=== PATIENT | male | born 1940 | race Two or more races ===

== ENCOUNTER 2022-01-10 22:04 | Inpatient (IN) | payer MEDICARE, OTHER ==
[~2022-01-10] VITALS: Ht 170.2 cm; Wt 63.5 kg
--- NOTE | 2022-01-10 22:15 | NUR ---
TO ER BED 3. BIBRA39 FOR CHRONIC BACK PAIN [id number]. 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 PAIN 9/10 ON P/S. CONNECTED TO MONITOR. VSS. AWAITING MD SANTAMARIA
[2022-01-10] MEDS ORDERED: KETOROLAC TROMETHAMINE INJ 30 MG/ML VIAL ONE (22:41)
[2022-01-10] MEDS ORDERED: CYCLOBENZAPRINE 10 MG TABLET ONE (22:41)
[2022-01-10] MEDS ORDERED: CYCLOBENZAPRINE 10 MG TABLET PO ONE (23:00)
[2022-01-10] MEDS ORDERED: KETOROLAC TROMETHAMINE INJ 60 MG/2 ML VIAL IM ONE (23:00)
[2022-01-11] MEDS ORDERED: MORPHINE SULFATE INJ 2 MG/ML DISP.SYRIN IV ONE (01:00)
[2022-01-11] MEDS ORDERED: MORPHINE SULFATE INJ 4 MG/ML DISP.SYRIN ONE (01:03)
--- NOTE | 2022-01-11 01:08 | NUR ---
COVID ANTIGEN SWAB COLLECTED AND SENT TO LAB
--- NOTE | 2022-01-11 01:26 | NUR ---
MRSA COLLECTED, SENT TO LAB
--- NOTE | 2022-01-11 02:04 | NUR ---
DR. BEE TALKING TO DR. PADILLA FOR ADMISSION.
[2022-01-11] MEDS ORDERED: CYCLOBENZAPRINE 10 MG TABLET PO PRN (02:30)
[2022-01-11] MEDS ORDERED: MAG HYDROX/AL HYDROX/SIMETH 30 ML UDC PO PRN (02:30)
[2022-01-11] MEDS ORDERED: ACETAMINOPHEN 325 MG TABLET PO PRN (02:30)
[2022-01-11] MEDS ORDERED: Z GUARD REMEDY 4 OZ OINT TP PRN (02:30)
[2022-01-11] MEDS ORDERED: MAGNESIUM HYDROXIDE 30 ML UDC PO PRN (02:30)
[2022-01-11] MEDS ORDERED: ZOLPIDEM TARTRATE 5 MG TABLET PO PRN (02:30)
[2022-01-11] MEDS ORDERED: ONDANSETRON HCL/PF 4 MG/2 ML VIAL IVP PRN (02:30)
[2022-01-11 03:05] LABS: BASOPHILS % (AUTO) 0.5 % (0.0-2.0); EOSINOPHILS % (AUTO) 3.2 % (0.0-6.0); HEMATOCRIT 38 % (39-51); HEMOGLOBIN 13.3 g/dL (13.5-17.5); LYMPHOCYTES # (AUTO) 1.4 K/uL (0.8-4.8); LYMPHOCYTES % (AUTO) 20.8 % (20.0-44.0); MEAN CORPUSCULAR HGB CONC 35 g/dl (31.0-36.0); MEAN CORPUSCULAR VOLUME 85 fL (80-96); MONOCYTES # (AUTO) 0.6 K/uL (0.1-1.30); MONOCYTES % (AUTO) 8.1 % (2.0-12.0); NEUTROPHILS # (AUTO) 4.6 K/uL (1.8-8.9); NEUTROPHILS % (AUTO) 67.4 % (43.0-81.0); PLATELET COUNT (AUTO) 208 K/uL (150-450); RED BLOOD CELL COUNT(AUTO) 4.48 MIL/uL (4.5-6.0); WHITE BLOOD COUNT (AUTO) 6.8 K/uL (4.3-11.0)
[2022-01-11 03:13] LABS: CALCIUM, SERUM 8.4 mg/dL (8.5-10.1); CARBON DIOXIDE 29 mmol/L (21-32); CHLORIDE 104 mmol/L (98-107); CREATININE 1.4 mg/dL (0.6-1.3); GLUCOSE 184 mg/dL (74-106); POTASSIUM 4.3 mmol/L (3.5-5.1); SODIUM SERUM 139 mmol/L (136-145); UREA NITROGEN, BLOOD 24 mg/dL (7-18)
--- NOTE | 2022-01-11 07:00 | NUR ---
RECEIVED PT FROM MARIA ISABEL CUEVAS C/O ABDOMINAL PAIN 03/19 AND ROBERTA FOR MEDICALE FLOOR BED ASKING STRONG PAIN MEDICTION PLAN
--- NOTE | 2022-01-11 07:15 | NUR ---
RECEVED PT FROM JUILE ASLEEY RESPIRATION SPONT AND EASY NO DISTRESS WATING FOR BED NO PAIN
--- NOTE | 2022-01-11 07:39 | NUR ---
PT REFUSED TO CONTENUE TERETMET AND REQUSTED TO SIGN AMDanish BASS NOTEFY PT SIDE I RECEVED TX AND I WANT TO GO HOE MEDITION FOR PAIN NOT HELP ME REQUSTED TO SIGN AANAPOLEON
--- NOTE | 2022-01-11 07:51 | NUR ---
REPORT GIVEN TO MASON SCHULTE FOR AYLA.
[2022-01-11] MEDS ORDERED: PANTOPRAZOLE 40 MG TABLET.DR PO ONE (07:55)
[2022-01-11] MEDS: PANTOPRAZOLE 40 MG TABLET.DR PO SCH (07:56)
--- NOTE | 2022-01-11 08:45 | NUR ---
TRANSFERRED TO 327 IN STABLE CONDITION
[2022-01-11] MEDS ORDERED: NEO/3.5O15 RIGHTEYE (09:33)
[2022-01-11] MEDS ORDERED: ATOR40TA PO (09:33)
[2022-01-11] MEDS ORDERED: INSU100V7 SQ (09:33)
[2022-01-11] MEDS ORDERED: METF-441 PO (09:33)
[2022-01-11] MEDS ORDERED: MULT-1168 PO (09:33)
[2022-01-11] MEDS ORDERED: ASPI-1420 PO (09:33)
[2022-01-11] MEDS ORDERED: GLIM2TAB31 PO (09:33)
[2022-01-11] MEDS ORDERED: OLME40TA18 PO (09:33)
[2022-01-11] MEDS ORDERED: ERGO500093 PO (09:33)
[2022-01-11] MEDS ORDERED: AMLO-212 PO (09:33)
[2022-01-11 11:14] VITALS: BP 148/68
[2022-01-11] MEDS ORDERED: IV NS 0.9% 1,000 ML IV ONE (11:30)
--- NOTE | 2022-01-11 19:37 | NUR ---
MS RN OPENING NOTES PATIENT CAME FROM ER, AND REPORT RECEIVED FROM MASON CRISSOTOMO. PATIENT IS AWAKE IN HIS BED COMFORTABLY; A/O X 4 AND ABLE TO COMMUNICATE HIS NEEDS. NO SIGNS OF DISTRESS, SOB AND DISCOMFORTED NOTED. R AC #18G, PATENT & INTACT. SAFETY MEASURES INITIATED: CALL LIGHT IN REACH, BED ON LOWER POSITION. ALL NEEDS ATTENDED AT THIS TIME. WILL CONTINUE TO MONITOR FOR AYLA.
--- NOTE | 2022-01-11 19:39 | NUR ---
MS RN CLOSING NOTES PATIENT IS AWAKE IN HIS BED COMFORTABLY; A/O X 4 AND ABLE TO COMMUNICATE HIS NEEDS. NO SIGNS OF DISTRESS, SOB AND DISCOMFORTED NOTED. R AC #18G, PATENT & INTACT. SAFETY MEASURES INITIATED: CALL LIGHT IN REACH, BED ON LOWER POSITION. ALL NEEDS ATTENDED AT THIS TIME. WILL ENDORSE TO INCOMING SHIFT FOR AYLA.
[2022-01-11 20:00] VITALS: BP 121/59
[2022-01-11] MEDS ORDERED: DEXTROSE 50%-WATER 50 ML DISP.SYRIN IV PRN (20:00)
[2022-01-11] MEDS ORDERED: *INSULIN REGULAR(HUMULIN R)HUM 100 UNIT/ML VIAL SQ PRN (20:00)
[2022-01-11] MEDS: MORPHINE SULFATE INJ 4 MG/ML DISP.SYRIN IV PRN (20:15)
[2022-01-11] MEDS ORDERED: INSULIN REGULAR, HUMAN 100 UNIT/ML 3 ML VIAL ONE (20:49)
[2022-01-11] MEDS: BLOOD SUGAR DIAGNOSTIC 1 EACH STRIP VI SCH (21:55)
[2022-01-11] MEDS ORDERED: ATORVASTATIN 40 MG TABLET PO SCH (22:00)
[2022-01-11 22:48] LABS: BILIRUBIN,URINE NEGATIVE (NEGATIVE); COLOR,URINE YELLOW (YELLOW); LEUKOCYTE ESTERASE ,URINE NEGATIVE (NEGATIVE); NITRITE, URINE NEGATIVE (NEGATIVE); PROTEIN,URINE NEGATIVE (NEGATIVE); UGLUCOSE NEGATIVE (NEGATIVE); UROBILINOGEN,URINE 0.2 EU/dL (0.2)
--- NOTE | 2022-01-12 05:53 | NUR ---
ADMITTED FOR INTRACTABLE BACK PAIN, ALERT/ORIENTED X4, ROOM AIR, BACK PAIN, MORPHINE 4 MG IV GIVEN WITH ADEQUATE RELIEF. GENERALIZED WEAKNESS, ABLE TO GET OUT OF BED AND STAND, WILL REQUIRE FWW TO AMBULATE. CONTINENT OF BOWEL AND BLADDER. PER CT LUMBAR, POSTERIOR DISC BULGES, SPINAL CANAL NARROWING. US RENAL SHOWS BILATERAL RENAL CYSTS. BUN/CREATININE ELEVATED, PER WREATH AND GARLAND MAKER HAND, JOSH RULE OUT ATN, LIKELY HYPOPERFUSION. PT EVAL AND TREATMENT, PAIN CONTROL, NS AT 50 ML/HR
[2022-01-12] MEDS: INSULIN REGULAR, HUMAN 100 UNIT/ML 3 ML VIAL SQ PRN ×2 (06:45→12:03)
[2022-01-12 06:50] LABS: BASOPHILS % (AUTO) 0.6 % (0.0-2.0); EOSINOPHILS % (AUTO) 3.9 % (0.0-6.0); HEMATOCRIT 39 % (39-51); HEMOGLOBIN 13.7 g/dL (13.5-17.5); LYMPHOCYTES # (AUTO) 1.2 K/uL (0.8-4.8); LYMPHOCYTES % (AUTO) 20.5 % (20.0-44.0); MEAN CORPUSCULAR HGB CONC 35 g/dl (31.0-36.0); MEAN CORPUSCULAR VOLUME 85 fL (80-96); MONOCYTES # (AUTO) 0.5 K/uL (0.1-1.30); MONOCYTES % (AUTO) 9.8 % (2.0-12.0); NEUTROPHILS # (AUTO) 3.7 K/uL (1.8-8.9); NEUTROPHILS % (AUTO) 65.2 % (43.0-81.0); PLATELET COUNT (AUTO) 204 K/uL (150-450); WHITE BLOOD COUNT (AUTO) 5.6 K/uL (4.3-11.0)
[2022-01-12] MEDS: BLOOD SUGAR DIAGNOSTIC 1 EACH STRIP VI SCH ×2 (06:56→11:48)
[2022-01-12 07:14] LABS: CALCIUM, SERUM 8.5 mg/dL (8.5-10.1); CREATININE 1.1 mg/dL (0.6-1.3); PHOSPHORUS 3.8 mg/dL (2.5-4.9)
--- NOTE | 2022-01-12 07:30 | NUR ---
MS RN OPENING NOTES RECEIVED PATIENT AWAKE IN HIS BED COMFORTABLY; A/O X 4 AND EASILY AROUSABLE. ABLE TO COMMUNICATE HIS NEEDS. NO SIGNS OF DISTRESS, SOB AND DISCOMFORTED NOTED. R AC #20G WITH NS @ 50 ML/HR; PATENT & INTACT. SAFETY MEASURES INITIATED: CALL LIGHT IN REACH, BED ON LOWER POSITION. ALL NEEDS ATTENDED AT THIS TIME. WILL CONTINUE TO MONITOR FOR AYLA.
[2022-01-12 08:21] VITALS: BP 128/85
[2022-01-12] MEDS: PANTOPRAZOLE 40 MG TABLET.DR PO SCH (08:21)
[2022-01-12] MEDS ORDERED: AMLODIPINE BESYLATE 5 MG TABLET PO SCH (09:00)
[2022-01-12] MEDS: MORPHINE SULFATE INJ 4 MG/ML DISP.SYRIN IV PRN (10:30)
[2022-01-12] MEDS ORDERED: METH-647 PO (11:09)
--- NOTE | 2022-01-12 16:00 | NUR ---
MS DIRECTOR MEDIA NOTES PATIENT IS AWAKE. ALERT, & ORIENTED X 4. ALL HIS NEEDS WERE MET, AND ABLE TO COMMUNICATE IT. IV IN R FA #20G IS DISCONNECTED; NO SIGNS OF SWELLING, BLEEDING AND INFILTRATION. V/S IS WITHIN NORMAL LIMITS. ROOM AIR, NO SIGNS OF SOB AND DISTRESS. ALL DISCHARGED INSTRUCTION GIVEN TO PATIENT, AND HE VERBALIZED UNDERSTANDING. BELONGING CHECKLIST SIGNED AND PATIENT VERIFIED THAT ALL HIS VALUABLES ARE COMPLETE. PATIENT IS STABLE AND DISCHARGED @1600. BEFORE LEAVING, PATIENT REQUESTED 650 MG OF TYLENOL FOR BACK PAIN. REPORT IS GIVEN TO SINA BEVERLY. PATIENT IS STABLE AND ACCOMPANIED BY 2 EMT'S IN [facility] FOR DISCHARGE TRANSPORTATION.
== END 2022-01-12 18:02 | disposition home health service (06) | DRG 551 ==
LOC: ER 22:06 → TRANSITION 01-11 05:20 → MED 01-11 07:44
PROVIDERS: ADMIT Nurse Practitioner Acute Care; ATTEND Nurse Practitioner Acute Care
DX: M48.061 Spinal stenosis, lumbar region without neurogenic claudication (principal); N17.0 Acute kidney failure with tubular necrosis; E11.65 Type 2 diabetes mellitus with hyperglycemia; I10 Essential (primary) hypertension; Z79.4 Long term (current) use of insulin; Z79.84 Long term (current) use of oral hypoglycemic drugs; Z20.822 Contact with and (suspected) exposure to COVID-19; Z79.82 Long term (current) use of aspirin; G89.29 Other chronic pain; N40.0 Benign prostatic hyperplasia without lower urinary tract symptoms; N28.1 Cyst of kidney, acquired
CPT/HCPCS: 36415; 72131-TC; 76770-TC; 76870-TC; 80048-TC; 82962-TC; 83735-TC; 84100-TC; 85025-TC; 87081-TC; 87086-TC; 97116-TC; 97530-TC; C9803; G0378; J1815; J1885; J2270; J7030

== ENCOUNTER 2022-01-16 22:14 | Emergency (ER) | payer MEDICARE, OTHER ==
[~2022-01-16] VITALS: Ht 175.3 cm; Wt 83.9 kg
[~2022-01-16 22:14] MED LIST: AMLO-212 PO; ASPI-1420 PO; ATOR40TA PO; ERGO500093 PO; GLIM2TAB31 PO; INSU100V7 SQ; METF-441 PO; METH-647 PO; MULT-1168 PO; NEO/3.5O15 RIGHTEYE; OLME40TA18 PO
--- NOTE | 2022-01-16 22:35 | NUR ---
TO ER BED 4. BIBSELF C/O LOW BS AT HOME . ACCUCHECK NOTED AT 99 DURING TRIAGE. AAOX4. AMBULAYORY. CONNECTED TO MONITOR. VSS. NOT IN RESPIRATORY DISTRESS. AWAITING MD SANTAMARIA
--- NOTE | 2022-01-16 22:58 | NUR ---
PT TAKEN FOR CT SCAN
--- NOTE | 2022-01-16 23:09 | NUR ---
[facility]
[2022-01-16 23:15] LABS: BASOPHILS % (AUTO) 0.6 % (0.0-2.0); EOSINOPHILS % (AUTO) 4.3 % (0.0-6.0); HEMATOCRIT 40 % (39-51); HEMOGLOBIN 13.9 g/dL (13.5-17.5); LYMPHOCYTES # (AUTO) 1.4 K/uL (0.8-4.8); LYMPHOCYTES % (AUTO) 22.9 % (20.0-44.0); MEAN CORPUSCULAR HGB CONC 35 g/dl (31.0-36.0); MEAN CORPUSCULAR VOLUME 85 fL (80-96); MONOCYTES # (AUTO) 0.7 K/uL (0.1-1.30); MONOCYTES % (AUTO) 11.7 % (2.0-12.0); NEUTROPHILS # (AUTO) 3.8 K/uL (1.8-8.9); NEUTROPHILS % (AUTO) 60.5 % (43.0-81.0); PLATELET COUNT (AUTO) 212 K/uL (150-450); WHITE BLOOD COUNT (AUTO) 6.2 K/uL (4.3-11.0)
[2022-01-16 23:26] LABS: CALCIUM, SERUM 8.9 mg/dL (8.5-10.1); CARBON DIOXIDE 32 mmol/L (21-32); CHLORIDE 102 mmol/L (98-107); CREATININE 1.1 mg/dL (0.6-1.3); GLUCOSE 116 mg/dL (74-106); POTASSIUM 4.2 mmol/L (3.5-5.1); SODIUM SERUM 140 mmol/L (136-145); UREA NITROGEN, BLOOD 19 mg/dL (7-18)
[2022-01-16 23:32] LABS: ALANINE AMINOTRANSFERASE 35 U/L (12-78); ALBUMIN 3.9 g/dL (3.4-5.0); ALKALINE PHOSPHATASE 57 U/L (46-116); ASPARTATE AMINOTRANSFERASE 18 U/L (15-37); BILIRUBIN,DIRECT 0.1 mg/dL (0.0-0.2); BILIRUBIN,TOTAL 0.4 mg/dL (0.2-1.0); TOTAL PROTEIN, SERUM 7.1 g/dL (6.4-8.2)
--- NOTE | 2022-01-17 00:56 | NUR ---
LAB AT BEDSIDE FOR REPEAT TROP
--- NOTE | 2022-01-17 01:39 | NUR ---
Patient discharged to home in stable condition. Written and verbal after care instructions given. Patient verbalizes understanding of instruction.
[2022-01-17 01:41] VITALS: BP 145/81
== END 2022-01-17 01:45 | disposition home or self-care (01) ==
LOC: ER 22:19
DX: Z71.1 Person with feared health complaint in whom no diagnosis is made (principal); R51.9 Headache, unspecified; R42 Dizziness and giddiness; I10 Essential (primary) hypertension; E11.9 Type 2 diabetes mellitus without complications; Z79.899 Other long term (current) drug therapy
CPT/HCPCS: 36415; 70450-TC; 71045-TC; 80048-TC; 80076-TC; 82962-TC; 84484-TC; 85025-TC; 85730-TC

== ENCOUNTER 2022-02-06 09:32 | Emergency (ER) | payer MEDICARE, OTHER ==
[~2022-02-06] VITALS: Ht 175.3 cm; Wt 88.5 kg
--- NOTE | 2022-02-06 09:44 | NUR ---
To ER bed 11, from home, "Slip/Fall in BR Left side hit wall. Pain more left shoulder", patient said he fell yesterday and could not move his shoulder, denies LOC, aaox3, breathing even and non labored, awaiting md banda
--- NOTE | 2022-02-06 09:50 | NUR ---
DR WEATHERS AT BEDSIDE FOR EVAL
--- NOTE | 2022-02-06 10:11 | NUR ---
TAKEN TO CT VIA JUSTIN
[2022-02-06] MEDS ORDERED: NAPR-1009 PO (11:29)
--- NOTE | 2022-02-06 11:41 | NUR ---
Patient discharged to home in stable condition. Written and verbal after care instructions given. Patient verbalizes understanding of instruction.
[2022-02-06 11:47] VITALS: BP 135/77
== END 2022-02-06 11:47 | disposition home or self-care (01) ==
LOC: ER 09:42
DX: S43.492A Other sprain of left shoulder joint, initial encounter (principal); S50.312A Abrasion of left elbow, initial encounter; S09.90XA Unspecified injury of head, initial encounter; I10 Essential (primary) hypertension; E11.9 Type 2 diabetes mellitus without complications; Z79.899 Other long term (current) drug therapy; W18.30XA Fall on same level, unspecified, initial encounter; Y93.89 Activity, other specified; Y92.89 Other specified places as the place of occurrence of the external cause; Y99.8 Other external cause status
CPT/HCPCS: 70450-TC; 73030-TC; 73060-TC

== ENCOUNTER 2022-04-14 09:55 | Emergency (ER) | payer MEDICARE, OTHER ==
[~2022-04-14] VITALS: Ht 175.3 cm; Wt 83.0 kg
[~2022-04-14 09:55] MED LIST changes: +NAPR-1009 PO
--- NOTE | 2022-04-14 10:21 | NUR ---
BIB SELF C/O PAIN BI- LATERAL LE
[2022-04-14] MEDS ORDERED: KETOROLAC TROMETHAMINE 15 MG/ML VIAL ONE (10:51)
[2022-04-14] MEDS ORDERED: GABAPENTIN 100 MG CAPSULE ONE (10:51)
[2022-04-14] MEDS ORDERED: GABAPENTIN 100 MG CAPSULE PO ONE (11:00)
[2022-04-14] MEDS ORDERED: KETOROLAC TROMETHAMINE INJ 60 MG/2 ML VIAL IM ONE (11:00)
--- NOTE | 2022-04-14 11:16 | NUR ---
BS = 236
--- NOTE | 2022-04-14 13:05 | NUR ---
TYPE 2 DM, HAS A SOURCE FOR BLOOD TEST ON LEFT UPPER ARM TO HELP AVOID THE POKE/STICKS
[2022-04-14] MEDS ORDERED: HYDR-4303 PO (13:12)
--- NOTE | 2022-04-14 13:23 | NUR ---
PT CLEARED FOR D/C BY DR WORTHINGTON, LEFT WITHOUT ACI.
[2022-04-14 13:24] VITALS: BP 122/70
== END 2022-04-14 13:25 | disposition home or self-care (01) ==
LOC: ER 10:04
DX: M79.672 Pain in left foot (principal); E11.65 Type 2 diabetes mellitus with hyperglycemia; I10 Essential (primary) hypertension; Z98.890 Other specified postprocedural states; Z79.899 Other long term (current) drug therapy; Z79.84 Long term (current) use of oral hypoglycemic drugs; Z79.4 Long term (current) use of insulin
CPT/HCPCS: 99283; 96372; 73620; 82962; J1885

== ENCOUNTER 2022-06-10 16:11 | Inpatient (IN) | payer MEDICARE, OTHER ==
[~2022-06-10] VITALS: Ht 180.3 cm; Wt 89.8 kg
[~2022-06-10 16:11] MED LIST changes: +HYDR-4303 PO
--- NOTE | 2022-06-10 16:19 | NUR ---
BIBRA 99 FROM HOME W/ C/O CHEST PAIN AND ABD PAIN TODAY; ASA 324MG AND NITRO SPRAY X3 GIVEN HAND CANDY MOLDER. TO ER BED 7.
--- NOTE | 2022-06-10 16:33 | NUR ---
IV ESTABLISHED L AC 20G. LABS DRAWN AND COLLECTED AT BEDSIDE.
[2022-06-10 17:14] LABS: BASOPHILS % (AUTO) 0.4 % (0.0-2.0); EOSINOPHILS % (AUTO) 0.9 % (0.0-6.0); HEMATOCRIT 28 % (39-51); HEMOGLOBIN 9.1 g/dL (13.5-17.5); LYMPHOCYTES # (AUTO) 0.7 K/uL (0.8-4.8); LYMPHOCYTES % (AUTO) 9.1 % (20.0-44.0); MEAN CORPUSCULAR HGB CONC 33 g/dl (31.0-36.0); MEAN CORPUSCULAR VOLUME 86 fL (80-96); MONOCYTES # (AUTO) 0.8 K/uL (0.1-1.30); MONOCYTES % (AUTO) 10.9 % (2.0-12.0); NEUTROPHILS % (AUTO) 78.7 % (43.0-81.0); PLATELET COUNT (AUTO) 426 K/uL (150-450); RED BLOOD CELL COUNT(AUTO) 3.28 MIL/uL (4.5-6.0); WHITE BLOOD COUNT (AUTO) 7.6 K/uL (4.3-11.0)
[2022-06-10 17:46] LABS: CALCIUM, SERUM 8.5 mg/dL (8.5-10.1); CARBON DIOXIDE 28 mmol/L (21-32); CHLORIDE 101 mmol/L (98-107); CREATININE 1.2 mg/dL (0.6-1.3); GLUCOSE 159 mg/dL (74-106); POTASSIUM 4.9 mmol/L (3.5-5.1); SODIUM SERUM 133 mmol/L (136-145); UREA NITROGEN, BLOOD 18 mg/dL (7-18)
[2022-06-10 17:52] LABS: ALANINE AMINOTRANSFERASE 23 U/L (12-78); ALBUMIN 2.6 g/dL (3.4-5.0); ALKALINE PHOSPHATASE 73 U/L (46-116); ASPARTATE AMINOTRANSFERASE 18 U/L (15-37); BILIRUBIN,DIRECT 0.2 mg/dL (0.0-0.2); BILIRUBIN,TOTAL 0.5 mg/dL (0.2-1.0); TOTAL PROTEIN, SERUM 6.7 g/dL (6.4-8.2)
--- NOTE | 2022-06-10 18:24 | NUR ---
COVID SWAB COLLECTED AND SENT TO LAB
[2022-06-10] MEDS ORDERED: IOHEXOL-350 100 ML VIAL IV ONE (18:29)
[2022-06-10] MEDS ORDERED: IV NS 0.9% 250 ML IV ONE (18:29)
--- NOTE | 2022-06-10 18:39 | NUR ---
PT TAKEN TO RADIOLOGY FOR CT
--- NOTE | 2022-06-10 18:49 | NUR ---
CALLED DR. FAUSTIN LEFT A MSG TO CALL BACK.
--- NOTE | 2022-06-10 18:52 | NUR ---
NUMBER IS [phone]
--- NOTE | 2022-06-10 19:11 | NUR ---
FAXED PAPERWORK FOR REINA TO [facility]. FOR LOS [phone] FAX. AWAITING RESPONSE
--- NOTE | 2022-06-10 20:19 | NUR ---
RECEIVED REPORT FROM MASON ESTEBAN. PT CAME WITH CC OF CHEST PAIN. PT IS AAOX4, ATTACHED TO MONITOR. VITALS CHECKED
--- NOTE | 2022-06-10 21:13 | NUR ---
SIDNEY, SON: [phone]
--- NOTE | 2022-06-10 21:40 | NUR ---
REC'D A CALL FROM AT [facility]. PER HIM THE SURGON DID NOT ACCPET THE PT PER HIM "THIS DOES NOT NEED AN IMMEDIATE SURGERY AND PATIENT CAN FOLLOW UP WITH DANIEL PRETTY IN THE MORNING"
--- NOTE | 2022-06-10 21:48 | NUR ---
[facility] CARDIOTHORASIC SURGON
--- NOTE | 2022-06-10 22:21 | NUR ---
DR WEATHERS ON THE PHONE WITH DR DOBSON, CARDIOTHORASIC SURGON
--- NOTE | 2022-06-10 22:33 | NUR ---
DR WEATHERS ON THE PHONE WITH DR FAUSTIN
[2022-06-11] MEDS ORDERED: IV NS 0.9% 1,000 ML IV PRN (06:00)
[2022-06-11] MEDS ORDERED: DEXTROSE 50%-WATER 50 ML DISP.SYRIN IV PRN (06:00)
[2022-06-11] MEDS ORDERED: ONDANSETRON HCL/PF 4 MG/2 ML VIAL IVP PRN (06:00)
[2022-06-11] MEDS ORDERED: SORBITOL SOLUTION 70% 30 ML SOLUTION PO ONE (06:00)
[2022-06-11 06:28] LABS: BASOPHILS % (AUTO) 0.7 % (0.0-2.0); EOSINOPHILS % (AUTO) 0.7 % (0.0-6.0); HEMATOCRIT 27 % (39-51); HEMOGLOBIN 8.8 g/dL (13.5-17.5); LYMPHOCYTES # (AUTO) 0.6 K/uL (0.8-4.8); LYMPHOCYTES % (AUTO) 10.3 % (20.0-44.0); MEAN CORPUSCULAR HGB CONC 32 g/dl (31.0-36.0); MEAN CORPUSCULAR VOLUME 87 fL (80-96); MONOCYTES # (AUTO) 0.7 K/uL (0.1-1.30); MONOCYTES % (AUTO) 11.9 % (2.0-12.0); NEUTROPHILS # (AUTO) 4.5 K/uL (1.8-8.9); NEUTROPHILS % (AUTO) 76.4 % (43.0-81.0); PLATELET COUNT (AUTO) 385 K/uL (150-450); RED BLOOD CELL COUNT(AUTO) 3.14 MIL/uL (4.5-6.0); WHITE BLOOD COUNT (AUTO) 5.9 K/uL (4.3-11.0)
[2022-06-11 06:42] LABS: CALCIUM, SERUM 8.2 mg/dL (8.5-10.1); CARBON DIOXIDE 26 mmol/L (21-32); CHLORIDE 102 mmol/L (98-107); CREATININE 1.2 mg/dL (0.6-1.3); GLUCOSE 156 mg/dL (74-106); PHOSPHORUS 3.9 mg/dL (2.5-4.9); POTASSIUM 4.6 mmol/L (3.5-5.1); SODIUM SERUM 134 mmol/L (136-145); UREA NITROGEN, BLOOD 17 mg/dL (7-18)
--- NOTE | 2022-06-11 07:28 | NUR ---
received report from brian
--- NOTE | 2022-06-11 07:47 | NUR ---
GOT BED 327-2
--- NOTE | 2022-06-11 08:15 | NUR ---
PT REPORT GIVEN TO MASON NGUYEN
[2022-06-11 08:20] VITALS: BP 131/61
[2022-06-11] MEDS: BLOOD SUGAR DIAGNOSTIC 1 EACH STRIP IN SCH ×4 (08:21→21:45)
[2022-06-11] MEDS ORDERED: hydrALAZINE HCL IV 20 MG VIAL IV PRN (08:30)
[2022-06-11] MEDS ORDERED: METHOCARBAMOL (500MG) 500 MG TABLET PO PRN (08:30)
[2022-06-11] MEDS ORDERED: NAPROXEN 500 MG TABLET PO PRN (08:30)
[2022-06-11] MEDS ORDERED: NEO/POLY/DEXA OPHTH OINT 3.5 GM TUBE RIGHTEYE SCH (09:00)
[2022-06-11] MEDS ORDERED: METFORMIN 850 MG TABLET PO SCH (09:00)
--- NOTE | 2022-06-11 09:24 | NUR ---
PT TRANSFERRED TO 327 VIA [facility] ACLS PROTOCOL. WARM HANDOFF GIVEN TO RN ASSIGNED.
[2022-06-11] MEDS: ASPIRIN EC 81 MG TABLET.DR PO SCH (09:36)
[2022-06-11] MEDS: AMLODIPINE BESYLATE 5 MG TABLET PO SCH (09:36)
[2022-06-11] MEDS: ACETAMINOPHEN 325 MG TABLET PO PRN (09:36)
[2022-06-11] MEDS: ATORVASTATIN 40 MG TABLET PO SCH (09:37)
[2022-06-11] MEDS: LOSARTAN POTASSIUM 50 MG TABLET PO SCH (09:38)
--- NOTE | 2022-06-11 10:00 | NUR ---
RN NOTES PATIENT COMPLAINED OF PAIN BEFORE WOUND CARE WAS PROVIDED, PRN TYLENOL ADMINISTERED.
--- NOTE | 2022-06-11 10:00 | NUR ---
HOUSE WRECKER NOTES RECEIVED PATIENT VIA GURNEY FROM ER, ACCOMPANIED BY TWO ER STAFF. ON 2L O2 VIA NC, NO S/S OF RESPIRATORY DISTRESS. ABLE TO AMBULATE FROM RNEY TO BED, PAIN EXPRESSED WHEN AMBULATING. PATIENT ORIENTED TO ROOM AND CALL LIGHT. V/S TAKEN AND STABLE. PATIENT ATTACHED TO TELE MONITORING SHOWING SINUS RHYTHM HR 67 AT THIS TIME. FULL BODY ASSESSMENT COMPLETED: CARDIAC SOUNDS WNL, LUNG SOUNDS DIMINISHED THROUGHOUT, GI PATIENT COMPLAINED THAT HE HAS NOT HAD A BOWEL MOVEMENT IN A FEW DAYS, PATIENT CONTINENT USES URINAL. SKIN ISSUES: ABDOMEN SCAB, CHEST OLD SURGICAL SCAB, BILATERAL FOOT WOUNDS, R BIG TOE BLISTER. PHOTOS TAKEN AND FILED INTO CHART. SAFETY MEASURES IN PLACE: BED IN LOWEST LOCKED POSITION, HOB ELEVATED, SIDE RAILS UP X2, AND CALL LIGHT AND TABLE WITHIN REACH. WILL CONTINUE TO MONITOR.
[2022-06-11 10:41] LABS: THYROID STIMULATING HORMONE 0.666 uIU/mL (0.358-3.74)
[2022-06-11 11:11] VITALS: BP 143/72
[2022-06-11 12:00] VITALS: BP 147/80
[2022-06-11] MEDS: FERROUS SULFATE (325 MG) 325 MG/TAB TABLET PO SCH ×2 (12:12→17:03)
[2022-06-11] MEDS: METOPROLOL TARTRATE 50 MG TABLET PO SCH ×2 (12:12→17:03)
[2022-06-11] MEDS: INSULIN REGULAR, HUMAN 100 UNIT/ML 3 ML VIAL SQ PRN ×3 (12:18→21:47)
[2022-06-11] MEDS ORDERED: IOHEXOL-350 100 ML VIAL IV ONE (13:15)
[2022-06-11] MEDS ORDERED: IV NS 0.9% 250 ML IV ONE (13:16)
[2022-06-11] MEDS ORDERED: CT SWABBABLE VALVE TRANS SET 1 EA INFUS.SET MC ONE (13:16)
--- NOTE | 2022-06-11 13:46 | NUR ---
RN NOTES PATIENT PICKED UP FOR [facility], STABLE, ACCOMPANIED BY 1 RETAIL DELIVERY DRIVER.
[2022-06-11] MEDS ORDERED: METOPROLOL TARTRATE INJ 5 MG/5 ML AMPUL IVP PRN (14:00)
[2022-06-11] MEDS ORDERED: NITROGLYCERIN 0.4 MG/TAB BOTTLE SL ONE (14:00)
--- NOTE | 2022-06-11 14:01 | NUR ---
CTA PROCEDURE WELL TOLERATED BY THE PT. PT IS AAOX4, NOT IN RESPIRATORY DISTRESS, V/S STABLE, KEPT RESTED AND COMFORTABLE. REPORT GIVEN TO MASON NGUYEN FOR AYLA.
--- NOTE | 2022-06-11 14:18 | NUR ---
RN NOTES PATIENT RETURNED FROM [facility], STABLE, WILL CONTINUE TO MONITOR.
[2022-06-11 16:00] VITALS: BP 127/65
--- NOTE | 2022-06-11 18:36 | NUR ---
SURFACE MOUNT TECHNOLOGY OPERATOR CLOSING NOTES PATIENT SLEEPING BED, A/Ox3, ON ROOM AIR. NO S/S OF RESPIRATORY DISTRESS. ON TELE MONITORING SHOWING SINUS RHYTHM/SINUS LANNY 58. NO S/S OF CARDIAC DISTRESS OR DISCOMFORT. IV ACCESS L AC #20 SL. INTACT AND PATENT, NO S/S OF INFILTRATION. PATIENT IS AMBULATORY AND HAD BATHROOM PRIVILEGE. SKIN IS INTACT. ALL PRESCRIBED MEDICATION ADMINISTERED. SAFETY MEASURES MAINTAINED: BED LOCKED AND IN LOWEST POSITION, SIDE RAILS UP x2, HOB ELEVATED, CALL LIGHT WITHIN REACH. WILL ENDORSE TO NEXT SHIFT ANY AYLA. Addendum: 06/12/22 at 0936 by PATRICK LIVE RN ADDENDUM: PATIENT SKIN NOT INTACT. SKIN ISSUES INCLUDE: BILATERAL FOOT WOUNDS, L BIG TOE BLISTER, CHEST SCAB, AND ABDOMINAL SCAB.
[2022-06-11 20:00] VITALS: BP 118/55
[2022-06-11] MEDS: INSULIN GLARGINE, 100 UNIT/ML CARTRIDGE SQ SCH (21:48)
--- NOTE | 2022-06-11 21:52 | NUR ---
ACCUCHECK Bld glucose 169mg/dl. Given 3 units insulin per SS parameters. Co-signed by MASON Marroquin.
--- NOTE | 2022-06-11 21:57 | NUR ---
NAUSEA Patient in bed, feels nauseated, no emesis. Denies chest pain, no c/o abdomen pain. Maintained upright posture. Given IV Zofran, will monitor.
[2022-06-12] VITALS: BP 114/77
[2022-06-12] MEDS: METOPROLOL TARTRATE 50 MG TABLET PO SCH ×4 (00:18→17:05)
[2022-06-12] MEDS: MORPHINE SULFATE INJ 2 MG/ML DISP.SYRIN IV PRN ×3 (00:20→17:06)
--- NOTE | 2022-06-12 00:25 | NUR ---
FOOT PAIN Patient in bed, wound ebenezer foot, c/o pain 03/19. Given IV Morphine, will reassess pain level.
[2022-06-12 05:58] LABS: BASOPHILS % (AUTO) 0.6 % (0.0-2.0); EOSINOPHILS % (AUTO) 2.2 % (0.0-6.0); HEMATOCRIT 28 % (39-51); LYMPHOCYTES # (AUTO) 0.6 K/uL (0.8-4.8); LYMPHOCYTES % (AUTO) 11.5 % (20.0-44.0); MEAN CORPUSCULAR HGB CONC 32 g/dl (31.0-36.0); MEAN CORPUSCULAR VOLUME 85 fL (80-96); MONOCYTES # (AUTO) 0.8 K/uL (0.1-1.30); MONOCYTES % (AUTO) 13.8 % (2.0-12.0); NEUTROPHILS # (AUTO) 4.1 K/uL (1.8-8.9); NEUTROPHILS % (AUTO) 71.9 % (43.0-81.0); PLATELET COUNT (AUTO) 373 K/uL (150-450); RED BLOOD CELL COUNT(AUTO) 3.27 MIL/uL (4.5-6.0); WHITE BLOOD COUNT (AUTO) 5.6 K/uL (4.3-11.0)
[2022-06-12] MEDS ORDERED: LACTULOSE 10 G/15 ML UDC (PYXIS) PO ONE (06:00)
[2022-06-12] MEDS ORDERED: SORBITOL SOLUTION 70% 30 ML SOLUTION PO ONE (06:00)
--- NOTE | 2022-06-12 06:13 | NUR ---
END OF SHIFT REPORT Patient in bed, Alert Oriented x3. Oxygen sat 93% on 2L NC, denies sob with exertion. Sinus Jimy in the Tele monitor HR 55. IV left AC intact. Bld glucose with SS insulin parameters. Diogenes foot wound, pain improved with IV Morphine. Offload heels at all times. Wound consult. Fall/skin precaution maintained.
--- NOTE | 2022-06-12 06:36 | NUR ---
CONSTIPATION Patient reports no stool in the last 4 days. Notified Bilingual Research Interviewer Ashley with new orders. Given Lactulose and Sorbitol, will monitor result.
[2022-06-12 07:08] LABS: ALBUMIN 2.4 g/dL (3.4-5.0); BILIRUBIN,TOTAL 0.4 mg/dL (0.2-1.0); CALCIUM, SERUM 8.2 mg/dL (8.5-10.1); CREATININE 1.1 mg/dL (0.6-1.3); PHOSPHORUS 3.5 mg/dL (2.5-4.9); POTASSIUM 4.2 mmol/L (3.5-5.1); TOTAL PROTEIN, SERUM 6.2 g/dL (6.4-8.2)
--- NOTE | 2022-06-12 07:11 | NUR ---
BUS WASHER CLOSING NOTES RECEIVED PATIENT SLEEPING BED, A/Ox3, ON 2L O2 VIA NC. NO S/S OF RESPIRATORY DISTRESS. ON TELE MONITORING SHOWING SINUS LANNY 56. NO S/S OF CARDIAC DISTRESS OR DISCOMFORT. IV ACCESS L AC #20 SL. INTACT AND PATENT, NO S/S OF INFILTRATION. PATIENT IS AMBULATORY WITH ASSIST AND USES URINAL. SKIN ISSUES: BILATERAL FOOT WOUNDS, L TOE BLISTER. SAFETY MEASURES IN PLACE: BED LOCKED AND IN LOWEST POSITION, SIDE RAILS UP x2, HOB ELEVATED, CALL LIGHT WITHIN REACH. WILL CONTINUE TO MONITOR.
[2022-06-12] MEDS: BLOOD SUGAR DIAGNOSTIC 1 EACH STRIP IN SCH ×4 (07:13→21:01)
[2022-06-12] MEDS: INSULIN GLARGINE, 100 UNIT/ML CARTRIDGE SQ SCH ×2 (07:16→21:05)
[2022-06-12] MEDS: INSULIN REGULAR, HUMAN 100 UNIT/ML 3 ML VIAL SQ PRN ×4 (07:17→21:02)
--- NOTE | 2022-06-12 07:17 | NUR ---
ACCUCHECK Bld glucose 160mg/dl. Given 2 units insulin per SS parameters. Co-signed by MASON Edwards.
[2022-06-12 08:13] VITALS: BP 140/76
[2022-06-12] MEDS: ASPIRIN EC 81 MG TABLET.DR PO SCH (08:45)
[2022-06-12] MEDS: AMLODIPINE BESYLATE 5 MG TABLET PO SCH (08:46)
[2022-06-12] MEDS: FERROUS SULFATE (325 MG) 325 MG/TAB TABLET PO SCH ×3 (08:46→17:05)
[2022-06-12] MEDS: ATORVASTATIN 40 MG TABLET PO SCH (08:46)
[2022-06-12] MEDS: MULTIVITAMINS,THERAGRAN 1 UDTAB TABLET PO SCH (08:46)
[2022-06-12] MEDS: LOSARTAN POTASSIUM 50 MG TABLET PO SCH (08:48)
--- NOTE | 2022-06-12 09:20 | NUR ---
WOUND CARE CONSULT: PT PRESENTS WITH LARGE OPEN BLISTERS TO BILATERAL LOWER EXTREMITIES, PRESENT ON ADMISSION. DR GOVEA CALLED FOR DPM CONSULT. XEROFORM IN USE AT THIS TIME. MD IN AGREEMENT WITH PLAN OF CARE.
--- NOTE | 2022-06-12 09:35 | NUR ---
RN NOTES PATIENT COMPLAINED OF PAIN AFTER WOUND CARE WAS PROVIDED. PRN MORPHINE ADMINISTERED. WILL CONTINUE TO MONITOR.
[2022-06-12] MEDS ORDERED: METO50TA16 PO (10:47)
[2022-06-12] MEDS ORDERED: FERR325T28 PO (10:47)
[2022-06-12 13:07] LABS: *SPE A/G RATIO 0.9 (0.7-1.7); *SPE ALPHA-1-GLOBULIN 0.3 g/dL (0.0-0.4); *SPE ALPHA-2-GLOBULIN 0.5 g/dL (0.4-1.0); *SPE BETA GLOBULIN 0.6 g/dL (0.7-1.3); *SPE M-SPIKE Not Observed g/dL (Not Observed)
[2022-06-12 16:37] VITALS: BP 142/74
--- NOTE | 2022-06-12 17:15 | NUR ---
RN NOTES PATIENT COMPLAINED OF PAIN IN THE FEET, PRN MORPHINE ADMINISTERED. WILL CONTINUE TO MONITOR.
--- NOTE | 2022-06-12 18:44 | NUR ---
MS RN CLOSING NOTES PATIENT AWAKE BED, A/Ox3, STABLE ON 2L O2 VIA NC. NO S/S OF RESPIRATORY DISTRESS. NO S/S OF CARDIAC DISTRESS OR DISCOMFORT. IV ACCESS L AC #20 SL. INTACT AND PATENT, NO S/S OF INFILTRATION. PATIENT IS AMBULATORY WITH ASSIST AND USES URINAL. SKIN ISSUES: BILATERAL FOOT WOUNDS, L TOE BLISTER. ALL PRESCRIBED MEDICATION ADMINISTERED. SAFETY MEASURES MAINTAINED: BED LOCKED AND IN LOWEST POSITION, SIDE RAILS UP x2, HOB ELEVATED, CALL LIGHT WITHIN REACH. WILL ENDORSE TO NEXT SHIFT ANY AYLA.
--- NOTE | 2022-06-12 21:05 | NUR ---
ACCUCHECK Bld glucose 149mg/dl. Given 2 units insulin per SS parameters. Co-signed by MASON Regalado.
[2022-06-13] MEDS: METOPROLOL TARTRATE 50 MG TABLET PO SCH ×5 (00:58→23:09)
[2022-06-13 00:59] VITALS: BP 139/78
--- NOTE | 2022-06-13 06:15 | NUR ---
END OF SHIFT REPORT Patient in bed, Alert Oriented x3. Oxygen sat low 90's on 2L NC, observed SOB with exertion, improved with upright posture and up sitting. IV left AC intact. Bld glucose with SS insulin parameters. BLE wound dressing clean and dry. Denies pain. No acute distress throughout shift. Offload heels at all times. Will endorse to oncoming RN.
[2022-06-13] MEDS: BLOOD SUGAR DIAGNOSTIC 1 EACH STRIP IN SCH ×4 (06:45→21:33)
[2022-06-13] MEDS: INSULIN GLARGINE, 100 UNIT/ML CARTRIDGE SQ SCH ×2 (06:47→21:38)
[2022-06-13] MEDS: INSULIN REGULAR, HUMAN 100 UNIT/ML 3 ML VIAL SQ PRN ×4 (06:51→21:39)
--- NOTE | 2022-06-13 06:53 | NUR ---
ACCUCHECK Bld glucose 215mg/dl. Given 4units insulin per SS parameters. Co-signed by MASON Juarez.
[2022-06-13 07:00] VITALS: BP 142/80
--- NOTE | 2022-06-13 07:51 | NUR ---
MS RN OPENING NOTES RECEIVED PATIENT AWAKE IN BED, PATIENT IS A/Ox3, STABLE ON 2L O2 VIA NC. NO S/S OF RESPIRATORY DISTRESS. NO S/S OF CARDIAC DISTRESS OR DISCOMFORT NOTED. IV ACCESS L AC #18 SL. INTACT AND PATENT, NO S/S OF INFILTRATION. PATIENT IS AMBULATORY WITH ASSIST AND USES URINAL. BILATERAL FOOT WOUNDS, L TOE BLISTER NOTED. ALL PRESCRIBED MEDICATION ADMINISTERED. SAFETY MEASURES MAINTAINED: BED LOCKED AND IN LOWEST POSITION, SIDE RAILS UP x2, HOB ELEVATED, CALL LIGHT WITHIN REACH. WILL CONTINUE TO MONITOR CLOSELY.
[2022-06-13] MEDS: FERROUS SULFATE (325 MG) 325 MG/TAB TABLET PO SCH ×3 (08:37→16:22)
[2022-06-13] MEDS: ATORVASTATIN 40 MG TABLET PO SCH (08:38)
[2022-06-13] MEDS: AMLODIPINE BESYLATE 5 MG TABLET PO SCH (08:38)
[2022-06-13] MEDS: MULTIVITAMINS,THERAGRAN 1 UDTAB TABLET PO SCH (08:38)
[2022-06-13] MEDS: ASPIRIN EC 81 MG TABLET.DR PO SCH (08:39)
[2022-06-13] MEDS: LOSARTAN POTASSIUM 50 MG TABLET PO SCH (08:39)
[2022-06-13] MEDS: MORPHINE SULFATE INJ 2 MG/ML DISP.SYRIN IV PRN ×2 (09:30→20:28)
[2022-06-13 16:00] VITALS: BP 132/78
--- NOTE | 2022-06-13 18:39 | NUR ---
MS RN CLOSING NOTES PATIENT AWAKE IN BED, PATIENT IS A/Ox3, STABLE ON 2L O2 VIA NC. NO S/S OF RESPIRATORY DISTRESS. NO S/S OF CARDIAC DISTRESS OR DISCOMFORT NOTED. IV ACCESS L AC #18 SL. INTACT AND PATENT, NO S/S OF INFILTRATION. PATIENT IS AMBULATORY WITH ASSIST AND USES URINAL. BILATERAL FOOT WOUNDS, L TOE BLISTER NOTED. ALL DUE MEDS AND TREATMENTS FOR WOUNDS DONE ORDERED. ALL SAFETY MEASURES MAINTAINED: BED LOCKED AND IN LOWEST POSITION, SIDE RAILS UP x2, HOB ELEVATED, CALL LIGHT WITHIN REACH. WILL ENDORSE FOR AYLA.
--- NOTE | 2022-06-13 19:44 | NUR ---
RN OPENING NOTE PATIENT AWAKE IN BED. A/OX3. NO S/S OF DISTRESS, BREATHING WITHOUT DIFFICULTY ON 2L NC. LAC #18 SL INTACT AND PATENT. SAFETY MEASURES IN PLACE: BED LOCKED IN LOWEST POSITION, RAILS UP X2, CALL COOPER WITHIN REACH. WILL CONTINUE TO MONITOR PATIENT.
[2022-06-13 20:00] VITALS: BP 112/70
[2022-06-13] MEDS: ACETAMINOPHEN 325 MG TABLET PO PRN (23:09)
[2022-06-14] MEDS: METOPROLOL TARTRATE 50 MG TABLET PO SCH ×2 (05:27→12:28)
[2022-06-14] MEDS: BLOOD SUGAR DIAGNOSTIC 1 EACH STRIP IN SCH ×2 (06:30→11:40)
[2022-06-14] MEDS: INSULIN GLARGINE, 100 UNIT/ML CARTRIDGE SQ SCH (06:31)
[2022-06-14] MEDS: INSULIN REGULAR, HUMAN 100 UNIT/ML 3 ML VIAL SQ PRN ×2 (06:32→11:45)
--- NOTE | 2022-06-14 06:49 | NUR ---
RN CLOSING NOTE PATIENT ASLEEP IN BED. A/OX3. NO S/S OF DISTRESS, BREATHING WITHOUT DIFFICULTY ON 2L NC. LAC #18 SL INTACT AND PATENT. SAFETY MEASURES IN PLACE: BED LOCKED AND AT LOWEST POSITION, RAILS UP X2, CALL COOPER WITHIN REACH. WILL ENDORSE TO NEXT SHIFT FOR AYLA.
--- NOTE | 2022-06-14 07:00 | NUR ---
MS RN OPENING NOTES: RECEIVED PT IN BED ASLEEP,EASILY AROUSED WITH STIMULI. ALERT ORIENTED X 3. NO SOB OR CARDIAC DISTRESS NOTED. ON O2 INHALATION @2LPM VIA NC. IV ACCESS ON LAC GAUGE 18 PATENT, INTACT AND SALINE LOCKED. KEPT RESTED AND COMFORTABLE. SAFETY PRECAUTIONS MAINTAINED: BED LOCKED AND IN LOWEST POSITION, SIDE RAILS UP X 2 . CALL LIGHT IN EASY REACH FOR HELP. WILL MONITOR ACCORDINGLY.
[2022-06-14 08:00] VITALS: BP 156/77
[2022-06-14] MEDS ORDERED: ERGOCALCIFEROL (VITAMIN D 2) 50,000 UNIT CAPSULE PO SCH (09:00)
[2022-06-14] MEDS: FERROUS SULFATE (325 MG) 325 MG/TAB TABLET PO SCH ×2 (09:45→12:28)
[2022-06-14] MEDS: ASPIRIN EC 81 MG TABLET.DR PO SCH (09:45)
[2022-06-14] MEDS: AMLODIPINE BESYLATE 5 MG TABLET PO SCH (09:45)
[2022-06-14] MEDS: LOSARTAN POTASSIUM 50 MG TABLET PO SCH (09:45)
[2022-06-14] MEDS: MULTIVITAMINS,THERAGRAN 1 UDTAB TABLET PO SCH (09:45)
[2022-06-14] MEDS: ATORVASTATIN 40 MG TABLET PO SCH (09:45)
[2022-06-14 12:28] VITALS: BP 143/79
--- NOTE | 2022-06-14 14:30 | NUR ---
IMPLEMENTATION PROJECT COORDINATOR NOTES; [facility] REPORT GIVEN TO MASON SCHMIDT. NO SOB OR CARDIAC DISTRESS NOTED. IV ACCESS REMOVED AND PT TOLERATED WELL. IDENTIFICATION BAND KEPT IN PLACE. SKIN ISSUES NOTED AND PHOTOS TAKEN FILED IN PT'S CHART. DISCHARGE PACKET AND INSTRUCTIONS GIVEN TO PARAMEDICS. BELONGINGS TAKEN WITH THE PT. PT LEFT THE UNIT STABLE VIA GURNEY.
== END 2022-06-14 14:30 | DRG 311 ==
LOC: ER 16:13 → TRANSITION 23:34 → TELE 06-11 08:10 → MED 06-12 08:48
PROVIDERS: ADMIT Internal Medicine; ATTEND Internal Medicine
DX: I20.9 Angina pectoris, unspecified (principal); E87.1 Hypo-osmolality and hyponatremia; L97.329 Non-pressure chronic ulcer of left ankle with unspecified severity; L97.319 Non-pressure chronic ulcer of right ankle with unspecified severity; Z20.822 Contact with and (suspected) exposure to COVID-19; E11.9 Type 2 diabetes mellitus without complications; E78.5 Hyperlipidemia, unspecified; I10 Essential (primary) hypertension; Z98.890 Other specified postprocedural states; Z79.4 Long term (current) use of insulin; Z79.84 Long term (current) use of oral hypoglycemic drugs; Z79.82 Long term (current) use of aspirin; Z79.899 Other long term (current) drug therapy; D64.9 Anemia, unspecified; E61.1 Iron deficiency; Z98.1 Arthrodesis status; Z86.79 Personal history of other diseases of the circulatory system; I87.2 Venous insufficiency (chronic) (peripheral); L97.529 Non-pressure chronic ulcer of other part of left foot with unspecified severity; L97.519 Non-pressure chronic ulcer of other part of right foot with unspecified severity; S90.421A Blister (nonthermal), right great toe, initial encounter; X58.XXXA Exposure to other specified factors, initial encounter; Y92.9 Unspecified place or not applicable
CPT/HCPCS: 36415; 71045-TC; 75574; 80048-TC; 80053-TC; 80076-TC; 82728-TC; 82962-TC; 83540-TC; 83690-TC; 83735-TC; 84100-TC; 84155; 84165; 84439-TC; 84443-TC; 84484-TC; 85025-TC; 87081-TC; 93970-TC; 97110-TC; 97112-TC; 97530-TC; A6253; A6403; C9803; G0378; J1815; J2270; J2405; J7030; J7050; Q9967

== ENCOUNTER 2022-08-13 03:18 | Emergency (ER) | payer MEDICARE, OTHER ==
[~2022-08-13] VITALS: Ht 175.3 cm; Wt 83.9 kg
[~2022-08-13 03:18] MED LIST changes: +FERR325T28 PO; -GLIM2TAB31 PO; +LACT10SO3 PO; +METO50TA16 PO
--- NOTE | 2022-08-13 03:55 | NUR ---
TO ER BED 10, BIBS FOR CONSTIPATION. LBM: 10 DAYS AGO, AAOX3, BREATHING EVEN AND NON LABORED, AWAITING MD SANTAMARIA
[2022-08-13] MEDS ORDERED: SENNOSIDES/DOCUSATE SODIUM 1 TAB TABLET ONE (04:51)
[2022-08-13] MEDS ORDERED: SENNOSIDES/DOCUSATE SODIUM 1 TAB TABLET PO SCH (05:00)
--- NOTE | 2022-08-13 05:00 | NUR ---
PATIENT REFUSED BLOOD DRAW, DR MOYA AWARE
[2022-08-13] MEDS ORDERED: SENN1TAB6 PO (05:47)
[2022-08-13] MEDS ORDERED: MINERAL OIL 133 ML (PYXIS) 1 EA ENEMA RC ONE ×2 (07:26→07:30)
[2022-08-13 07:37] LABS: BASOPHILS % (AUTO) 0.4 % (0.0-2.0); EOSINOPHILS % (AUTO) 1.8 % (0.0-6.0); HEMATOCRIT 38 % (39-51); HEMOGLOBIN 11.9 g/dL (13.5-17.5); LYMPHOCYTES % (AUTO) 13.4 % (20.0-44.0); MEAN CORPUSCULAR HGB CONC 32 g/dl (31.0-36.0); MEAN CORPUSCULAR VOLUME 79 fL (80-96); MONOCYTES # (AUTO) 0.6 K/uL (0.1-1.30); MONOCYTES % (AUTO) 8.5 % (2.0-12.0); NEUTROPHILS # (AUTO) 5.5 K/uL (1.8-8.9); NEUTROPHILS % (AUTO) 75.9 % (43.0-81.0); PLATELET COUNT (AUTO) 293 K/uL (150-450); RED BLOOD CELL COUNT(AUTO) 4.75 MIL/uL (4.5-6.0); WHITE BLOOD COUNT (AUTO) 7.3 K/uL (4.3-11.0)
--- NOTE | 2022-08-13 07:39 | NUR ---
PT RECEIVED A/O X4 ABLE TO AMBULATE. ABLE TO URINATE. C/O CONSTIPATION, FLEET ENEMA ADMINISTERED
[2022-08-13 07:43] LABS: CALCIUM, SERUM 8.7 mg/dL (8.5-10.1); CREATININE 1.1 mg/dL (0.6-1.3); POTASSIUM 4.2 mmol/L (3.5-5.1)
[2022-08-13 07:50] LABS: ALBUMIN 3.3 g/dL (3.4-5.0); BILIRUBIN,DIRECT 0.1 mg/dL (0.0-0.2); BILIRUBIN,TOTAL 0.3 mg/dL (0.2-1.0); TOTAL PROTEIN, SERUM 7.2 g/dL (6.4-8.2)
[2022-08-13] MEDS ORDERED: NA P133E33 RC (09:34)
[2022-08-13 10:04] VITALS: BP 138/72
== END 2022-08-13 10:07 | disposition home or self-care (01) ==
LOC: ER 03:21
DX: R14.0 Abdominal distension (gaseous) (principal); K59.00 Constipation, unspecified; Z95.1 Presence of aortocoronary bypass graft; Z79.82 Long term (current) use of aspirin; Z79.899 Other long term (current) drug therapy
CPT/HCPCS: 36415; 80048-TC; 80076-TC; 85025-TC

== ENCOUNTER 2022-08-30 09:40 | Emergency (ER) | payer MEDICARE, OTHER ==
[~2022-08-30] VITALS: Ht 182.9 cm; Wt 83.9 kg
[~2022-08-30 09:40] MED LIST changes: +NA P133E33 RC; +SENN1TAB6 PO
--- NOTE | 2022-08-30 09:59 | NUR ---
dr decker at bedside for eval.
--- NOTE | 2022-08-30 10:10 | NUR ---
laborer ammunition assembly at bedside for blood draw.
[2022-08-30 10:16] LABS: BASOPHILS % (AUTO) 0.6 % (0.0-2.0); EOSINOPHILS % (AUTO) 3.1 % (0.0-6.0); HEMATOCRIT 41 % (39-51); HEMOGLOBIN 13.1 g/dL (13.5-17.5); LYMPHOCYTES # (AUTO) 0.8 K/uL (0.8-4.8); LYMPHOCYTES % (AUTO) 13.7 % (20.0-44.0); MEAN CORPUSCULAR HGB CONC 32 g/dl (31.0-36.0); MEAN CORPUSCULAR VOLUME 77 fL (80-96); MONOCYTES # (AUTO) 0.5 K/uL (0.1-1.30); MONOCYTES % (AUTO) 8.8 % (2.0-12.0); NEUTROPHILS # (AUTO) 4.4 K/uL (1.8-8.9); NEUTROPHILS % (AUTO) 73.8 % (43.0-81.0); PLATELET COUNT (AUTO) 385 K/uL (150-450); RED BLOOD CELL COUNT(AUTO) 5.26 MIL/uL (4.5-6.0); WHITE BLOOD COUNT (AUTO) 5.9 K/uL (4.3-11.0)
[2022-08-30] MEDS ORDERED: MINERAL OIL 133 ML (PYXIS) 1 EA ENEMA RC ONE ×2 (10:30→10:32)
--- NOTE | 2022-08-30 10:35 | NUR ---
FLEET [place] OIL DONE WILL FALLOW UP WITH RESULT
[2022-08-30 10:52] LABS: CALCIUM, SERUM 9.3 mg/dL (8.5-10.1); CREATININE 1.1 mg/dL (0.6-1.3); POTASSIUM 4.1 mmol/L (3.5-5.1)
[2022-08-30 10:58] LABS: ALBUMIN 3.6 g/dL (3.4-5.0); BILIRUBIN,DIRECT 0.1 mg/dL (0.0-0.2); BILIRUBIN,TOTAL 0.4 mg/dL (0.2-1.0); TOTAL PROTEIN, SERUM 7.8 g/dL (6.4-8.2)
--- NOTE | 2022-08-30 11:35 | NUR ---
PATIENT TAKEN TO CT VIA JUSTIN
[2022-08-30] MEDS ORDERED: MORPHINE SULFATE INJ 2 MG/ML DISP.SYRIN IV ONE (13:00)
[2022-08-30] MEDS ORDERED: MORPHINE SULFATE INJ 4 MG/ML DISP.SYRIN ONE (13:05)
[2022-08-30] MEDS ORDERED: NA P133E RC (13:33)
[2022-08-30] MEDS ORDERED: PSYL0.4C2 PO (13:33)
--- NOTE | 2022-08-30 14:45 | NUR ---
IV removed. Catheter intact and site benign. Pressure and 4x4 applied to site. No bleeding noted.Patient discharged to home in stable condition. Written and verbal after care instructions given. Patient verbalizes understanding of instruction.
[2022-08-30 15:33] VITALS: BP 110/65
== END 2022-08-30 14:45 | disposition home or self-care (01) ==
LOC: ER 09:46
DX: K59.09 Other constipation (principal); Z95.1 Presence of aortocoronary bypass graft; Z79.899 Other long term (current) drug therapy; Z79.82 Long term (current) use of aspirin
CPT/HCPCS: 99285; 74176; 96374; 85025; 80048; 80076; 36415; J2270

== ENCOUNTER 2022-09-19 08:50 | Emergency (ER) | payer MEDICARE, OTHER ==
[~2022-09-19 08:50] MED LIST changes: +NA P133E RC; +PSYL0.4C2 PO
--- NOTE | 2022-09-19 09:07 | NUR ---
Multiple calls made No response. Niall
== END 2022-09-19 09:15 | disposition home or self-care (01) ==
LOC: ER 08:55
DX: Z53.21 Procedure and treatment not carried out due to patient leaving prior to being seen by health care provider (principal)

== ENCOUNTER 2024-05-28 17:03 | Emergency (ER) | payer MEDICARE, OTHER ==
[~2024-05-28] VITALS: Ht 175.3 cm; Wt 83.9 kg
[2024-05-28 17:29] VITALS: TEMP 98
[2024-05-28] MEDS ORDERED: CARBAMIDE PEROXIDE OTIC 15 ML BOTTLE ONE (18:29)
[2024-05-28] MEDS: CARBAMIDE PEROXIDE OTIC 15 ML BOTTLE OT ONE (19:05)
[2024-05-28 21:09] VITALS: BP 152/78; O2SAT 99
== END 2024-05-28 21:10 | disposition home or self-care (01) ==
LOC: ER 17:35
DX: H61.23 Impacted cerumen, bilateral (principal); I25.2 Old myocardial infarction; Z79.82 Long term (current) use of aspirin; Z79.84 Long term (current) use of oral hypoglycemic drugs; Z79.899 Other long term (current) drug therapy; Z95.1 Presence of aortocoronary bypass graft

== ENCOUNTER 2024-11-21 13:11 | Emergency (ER) | payer MEDICARE, OTHER ==
[~2024-11-21] VITALS: Ht 175.3 cm; Wt 83.9 kg
[2024-11-21] MEDS ORDERED: NA PHOS,M-B/NA PHOS,DI-BA 1 EA ENEMA RC ONE (13:53)
[2024-11-21] MEDS ORDERED: SENNOSIDES 8.6 MG TABLET ONE (13:53)
[2024-11-21 14:05] LABS: BASOPHILS % (AUTO) 0.5 % (0.0-2.0); EOSINOPHILS % (AUTO) 0.2 % (0.0-6.0); HEMATOCRIT 37 % (39-51); HEMOGLOBIN 12.6 g/dL (13.5-17.5); LYMPHOCYTES # (AUTO) 0.5 K/uL (0.8-4.8); LYMPHOCYTES % (AUTO) 6.8 % (20.0-44.0); MEAN CORPUSCULAR HEMOGLOBIN 30 PG (26.0-33.0); MEAN CORPUSCULAR HGB CONC 34 g/dl (31.0-36.0); MEAN CORPUSCULAR VOLUME 87 fL (80-96); MONOCYTES # (AUTO) 0.6 K/uL (0.1-1.30); NEUTROPHILS # (AUTO) 6.7 K/uL (1.8-8.9); NEUTROPHILS % (AUTO) 85.5 % (43.0-81.0); PLATELET COUNT (AUTO) 262 K/uL (150-450); RED BLOOD CELL COUNT(AUTO) 4.21 MIL/uL (4.5-6.0); RED CELL DISTRIBUTION WIDTH 14.2 % (11.5-15.0); WHITE BLOOD COUNT (AUTO) 7.9 K/uL (4.3-11.0)
[2024-11-21] MEDS: POLYETHYLENE GLYCOL 3350 17 GM POWD.PACK PO ONE (14:13)
[2024-11-21] MEDS: NA PHOS,M-B/NA PHOS,DI-BA 1 EA ENEMA RC ONE (14:13)
[2024-11-21] MEDS: SENNOSIDES/DOCUSATE SODIUM 1 TAB TABLET PO SCH (14:14)
[2024-11-21 14:15] LABS: CREATININE 0.9 mg/dL (0.6-1.3); POTASSIUM 4.3 mmol/L (3.5-5.1)
[2024-11-21 14:20] LABS: ALBUMIN 3.6 g/dL (3.4-5.0); BILIRUBIN,DIRECT 0.2 mg/dL (0.0-0.2); BILIRUBIN,TOTAL 0.6 mg/dL (0.2-1.0); TOTAL PROTEIN, SERUM 6.9 g/dL (6.4-8.2)
[2024-11-21] MEDS ORDERED: POLY17PO4 PO (14:31)
[2024-11-21] MEDS ORDERED: SENN1TAB77 PO (14:31)
[2024-11-21 18:39] VITALS: BP 149/73; TEMP 97.8; O2SAT 99
== END 2024-11-21 18:40 | disposition home or self-care (01) ==
LOC: ER 13:15
DX: K59.00 Constipation, unspecified (principal); E11.9 Type 2 diabetes mellitus without complications; I10 Essential (primary) hypertension; Z79.82 Long term (current) use of aspirin; Z79.84 Long term (current) use of oral hypoglycemic drugs; Z79.899 Other long term (current) drug therapy; Z95.1 Presence of aortocoronary bypass graft
CPT/HCPCS: 36415; 80048-TC; 80076-TC; 83690-TC; 85025-TC

== ENCOUNTER 2024-12-31 04:13 | Emergency (ER) | payer MEDICARE, OTHER ==
[~2024-12-31] VITALS: Ht 175.3 cm; Wt 83.9 kg
[~2024-12-31 04:13] MED LIST changes: +POLY17PO4 PO; +SENN1TAB77 PO
[2024-12-31] MEDS ORDERED: HYDROCODONE/APAP 5/325MG TABLET ONE (04:31)
[2024-12-31] MEDS ORDERED: TDAP [DIPH/PERTUSSIS/TET] 0.5 ML VIAL IM ONE (04:31)
[2024-12-31] MEDS: TDAP [DIPH/PERTUSSIS/TET] 0.5 ML VIAL IM ONE (04:39)
[2024-12-31] MEDS: HYDROCODONE/APAP 5/325MG TABLET PO ONE (04:44)
[2024-12-31 10:13] VITALS: BP 136/69; TEMP 98.4; O2SAT 98
== END 2024-12-31 10:13 | disposition home or self-care (01) ==
LOC: ER 04:14
DX: S80.212A Abrasion, left knee, initial encounter (principal); Z79.82 Long term (current) use of aspirin; Z79.84 Long term (current) use of oral hypoglycemic drugs; Z79.899 Other long term (current) drug therapy; W01.0XXA Fall on same level from slipping, tripping and stumbling without subsequent striking against object, initial encounter; Y93.89 Activity, other specified; Y92.89 Other specified places as the place of occurrence of the external cause; Y99.8 Other external cause status
CPT/HCPCS: 73564-TC; 90715